=== PATIENT | male | born 1970 | race Caucasian/White ===

== ENCOUNTER 2018-11-26 14:34 | Outpatient (CLI) | payer BC ==
--- NOTE | 2018-11-26 15:14 | RAD ---
2 views lumbar spine: 11/26/2018 COMPARISON: None HISTORY: Back pain FINDINGS: Facet hypertrophy noted at L4-5 and L5-S1. Disc space narrowing and prominent anterior oste ophyte formation noted at T10-11, T11-12, L4-5, and to a lesser degree, L5-S1. No acute fracture. No anterolisthesis or retrolisthesis. IMPRESSION: Multilevel degenerative change of the lumbar spine.
== END 2018-11-26 14:35 | disposition home or self-care (01) ==
LOC: BICRAD 14:34
PROVIDERS: ATTEND Family Medicine
DX: M54.9 Dorsalgia, unspecified (principal); M47.816 Spondylosis without myelopathy or radiculopathy, lumbar region
CPT/HCPCS: 72100

== ENCOUNTER 2018-12-31 07:04 | Day surgery (SDC) | payer BC ==
[2018-12-30 15:33] VITALS: BMI 36.0
--- NOTE | 2018-12-31 10:49 | RAD ---
LUMBAR AND THORACIC SPINE MYELOGRAM: HISTORY: Back pain. Radiation dosimetry: 2.6 minutes of fluoroscopy and DAP of 5.2 mGy/M2. TECHNIQUE/FINDINGS: Informed consent was obtained. The right L1-2 interlaminar space was localized using fluoroscopic asya dance. The overlying skin was prepped and draped in the usual sterile manner. A 1% lidocaine solution was used to anesthetize the overlying soft tissues. A 22-gauge spinal needle was placed into the subarachnoid space through the right L1-2 interlaminar space. A total of 10 mL of Isovue 300 M was injected into the subarachnoid space. Spot images obtained. Contrast was positioned into the thor acic spine and lumbar spine. Procedure CT is pending. Please see thoracic and lumbar spine CTs. IMPRESSION: Completion of thoracic and lumbar spine myelograms. Transcribed Date/Time: 12/31/2018 10:57 AM
--- NOTE | 2018-12-31 10:56 | CT ---
CT MYELOGRAM: HISTORY: Radiculopathy. FINDINGS: Post myelographic CT images obtained. T12-L1, L1-2: Unremarkable L2-3: Unremarkable. L3-4: There is minimal facet hypertrophy. No significant degree of central or neural foraminal narrow ing seen. L4-5: There is a mild broad-based disc bulge and mild facet and ligamentum flavum hypertrophy resulti ng in minimal central and lateral recess stenosis. The neural foramen are patent. L5-S1: There is disc space height loss. Broad-based posterior disc calcifications seen. No significan t evidence of thecal sac compression seen. The neural foramen are patent. Sigmoid colonic diverticulosis is present. IMPRESSION: No significant evidence of lumbar spine osseous lesions. There is mild disc space height loss seen at L5-S1 without evidence of significant thecal sac or neural foraminal narrowing. Transcribed Date/Time: 12/31/2018 10:59 AM
--- NOTE | 2018-12-31 11:04 | CT ---
CT MYELOGRAM THORACIC SPINE: HISTORY: Axial images are obtained with coronal and sagittal reconstructions. FINDINGS: Extensive anterior thoracic bridging osteophytes seen concerning for DISH (diffuse idiopathic skeleta l hyperostosis). The thoracic canal is unremarkable with no evidence of thecal sac and cord compressions. The neural f oramen demonstrate no evidence of osseous encroachments or significant stenosis. Some heterogeneous density seen in the T4 vertebral body possibly presenting intraosseous hemangioma in the T4 vertebra. Mild S-shaped scoliotic curvature seen in the thoracic spine. IMPRESSION: No significant evidence of acute thoracic spine abnormality seen. Transcribed Date/Time: 12/31/2018 11:24 AM
== END 2018-12-31 10:10 | disposition home or self-care (01) ==
LOC: RAD 07:04 → EDSTATUS 08:00 → RAD 10:10
PROVIDERS: ATTEND Neurological Surgery
PROC: B01B1ZZ Fluoroscopy of Spinal Cord using Low Osmolar Contrast (ICD-10-PCS; principal; 2018-12-31)
DX: M54.16 Radiculopathy, lumbar region (principal); I11.9 Hypertensive heart disease without heart failure; I42.9 Cardiomyopathy, unspecified; E11.9 Type 2 diabetes mellitus without complications; E78.5 Hyperlipidemia, unspecified; Z87.891 Personal history of nicotine dependence; Z95.810 Presence of automatic (implantable) cardiac defibrillator; Z91.013 Allergy to seafood; Z79.82 Long term (current) use of aspirin; Z79.84 Long term (current) use of oral hypoglycemic drugs; Z79.899 Other long term (current) drug therapy
CPT/HCPCS: 62305; 72129; 72132

== ENCOUNTER 2022-08-09 08:06 | Outpatient (CLI) | payer BC ==
[2022-08-09 09:00] LABS: Hemoglobin 17.6 g/dL (13.5-17.5); Mean Corpuscular HGB CONC 35.4 g/dL (32.0-36.0); Mean Corpuscular Hemoglobin 31.8 pg (27.0-33.0); Mean Corpuscular Volume 89.7 fl (81.2-95.1); Mean Platelet Volume 8.6 fl (7.4-10.4); Platelet Count 220 10x3/uL (150-450); RBC Distribution Width 12.5 % (11.5-14.5); Red Blood Cell (RBC) Count 5.54 10x6/uL (4.32-5.72); White Blood Cell (WBC) Count 7.2 10x3/uL (3.5-10.5)
[2022-08-09 09:13] LABS: Prothrombin Time 10.9 sec (9.5-12.1)
[2022-08-09 09:23] LABS: Anion Gap 13 mmol/L (10-20); BUN (Urea Nitrogen) 11 mg/dL (8.4-25.7); Calc. Creatinine Clearance 0 mL/min (70-130); Calcium 9.4 mg/dL (7.8-10.44); Carbon Dioxide 23 mmol/L (22-29); Chloride 105 mmol/L (98-107); Estimated GFR 108; Glucose 101 mg/dL (70-105); Potassium 4.2 mmol/L (3.5-5.1); Sodium 137 mmol/L (136-145)
== END 2022-08-09 08:07 | disposition home or self-care (01) ==
LOC: LABBT 08:06
PROVIDERS: ATTEND Internal Medicine Cardiovascular Disease
DX: Z01.818 Encounter for other preprocedural examination (principal); I47.20 Ventricular tachycardia, unspecified
CPT/HCPCS: 80048; 85027; 85610; 85730; 93005; 93010

== ENCOUNTER 2022-08-10 10:26 | Day surgery (SDC) | payer BC ==
[2022-08-10] MEDS ORDERED: CEFAZOLIN 1 GM VIAL ONE ×2 (11:28→11:58)
[2022-08-10] MEDS ORDERED: Gentamicin 80 MG/2 ML VIAL ONE (11:28)
[2022-08-10] MEDS ORDERED: Lidocaine 1% (PF) 30 ML VIAL ONE (11:28)
[2022-08-10] MEDS ORDERED: Midazolam HCl 2 mg/2 ml Vial ONE (12:28)
[2022-08-10] MEDS ORDERED: Dexmedetomidine 200 MCG/2 ML VIAL ONE (12:39)
[2022-08-10] MEDS ORDERED: fentaNYL PF 100 MCG/2 ML SYRINGE ONE (12:39)
[2022-08-10] MEDS ORDERED: Lidocaine 1% PF 5 ML VIAL ONE (12:53)
[2022-08-10] MEDS ORDERED: PHENYLEPHRINE-NS 100 MCG/ML 10 ML SYRINGE ONE (12:53)
[2022-08-10] MEDS ORDERED: Ondansetron PF 4 MG/2 ML Vial ONE (12:53)
[2022-08-10] MEDS ORDERED: PROPOFOL 200 MG/20 ML VIAL ONE (12:53)
[2022-08-10] MEDS ORDERED: Dexamethasone 20 MG/5 ML VIAL ONE (12:53)
== END 2022-08-10 15:44 | disposition home or self-care (01) ==
LOC: SDC 10:26
PROVIDERS: ATTEND Internal Medicine Cardiovascular Disease
PROC: 0JH609Z Insertion of Cardiac Resynchronization Defibrillator Pulse Generator into Chest Subcutaneous Tissue and Fascia, Open Approach (ICD-10-PCS; principal; 2022-08-10)
PROC: 0JPT0PZ Removal of Cardiac Rhythm Related Device from Trunk Subcutaneous Tissue and Fascia, Open Approach (ICD-10-PCS; principal; 2022-08-10)
DX: Z45.02 Encounter for adjustment and management of automatic implantable cardiac defibrillator (principal); I25.5 Ischemic cardiomyopathy; I11.0 Hypertensive heart disease with heart failure; I50.9 Heart failure, unspecified; I47.20 Ventricular tachycardia, unspecified; I44.7 Left bundle-branch block, unspecified; E78.5 Hyperlipidemia, unspecified; I25.2 Old myocardial infarction; G47.30 Sleep apnea, unspecified; Z87.891 Personal history of nicotine dependence; Z79.84 Long term (current) use of oral hypoglycemic drugs; Z79.899 Other long term (current) drug therapy; Z91.013 Allergy to seafood
CPT/HCPCS: 33241; 33249; 93641; C1882; J0690; J1100; J1580; J2001; J2250; J2405; J2704